=== PATIENT | male | born 1970 | race Caucasian/White ===

== ENCOUNTER 2024-11-28 09:08 | Emergency (ER) | payer OTHER ==
[~2024-11-28] VITALS: Ht 177.8 cm; Wt 95.0 kg
[2024-11-28 09:38] VITALS: BP 119/79; PULSE 64; RESP 18; TEMP 97.8; O2SAT 97
--- NOTE | 2024-11-28 09:38 | ED.PDOC ---
Musculoskeletal HPI Comments A 54 YEAR OLD MALE PRESENTS TO THE ED WITH COMPLAINT OF RIGHT ELBOW PAIN STATUS POST FALL. PATIENT STATES HE WAS RUNNING EARLIER TODAY AND ACCIDENTALLY FELL AND LANDED ON HIS RIGHT ELBOW. PATIENT REPORTS HE IS NOW EXPERIENCING RIGHT ELBOW AND IS CONCERNED HE MAY HAVE DISLOCATED IT HE HAS A HISTORY OF A RIGHT ELBOW DISLOCATION IN THE PAST. PATIENT DENIES HEAD INJURY, NECK INJURY, LOC, FEVER, CHILLS, SHORTNESS OF BREATH, CHEST PAIN, ABDOMINAL PAIN, NAUSEA, VOMITING, HEADACHE, OR OTHER COMPLAINTS. NO OTHER SYMPTOMS OR MODIFYING FACTORS AT THIS TIME. PATIENT IS ALERT, ORIENTED X 4, AND HAS STEADY GAIT. Chief Complaint: Upper Extremity Time Seen by MD: 09:17 Reviewed Notes: Nurses Notes, Medications, Allergies Allergies: Coded Allergies: NO KNOWN ALLERGIES (Unverified , 11/28/24) Home Meds Active Scripts Ibuprofen (Ibuprofen) 800 Mg Tab, 1 TAB PO TID, #60 TAB Prov:PATIENCEROWAN Zuniga 11/28/24 Information Source: Patient Mode of Arrival: Ambulatory Location: Right Extremity Location: Elbow Timing: Hours Prehospital treatment: None Severity: Moderate Able to Move Extremity: Yes Bear Weight: Fully Pain: Moderate Mechanism: Blunt Trauma Circumstances: Fall Onset of Symptoms: After Trauma Symptoms: Pain DVT Risk Factors: NONE Last Tetanus: UTD, Unknown Associated signs and symptoms: Elbow pain Past Medical History PAST MEDICAL HISTORY: Denies Surgical History: Denies all surgeries Family History Family History: Reviewed,noncontributory to illness Social History Smoker: Non-Smoker Alcohol: Denies ETOH Use Drugs: Denies Drug Use Lives In: Home Constitutional: denies: chills, diaphoresis, fatigue, fever, malaise, sweats, weakness, others EENTM: denies: blurred vision, double vision, ear bleeding, ear discharge, ear drainage, ear pain, ear ringing, eye pain, eye redness, hearing loss, mouth pain, mouth swelling, nasal discharge, nose bleeding, nose congestion, nose pain, photophobia, tearing, throat pain, throat swelling, voice changes, others Respiratory: denies: cough, hemoptysis, orthopnea, SOB at rest, shortness of breath, SOB with excertion, stridor, wheezing, others Cardiovascular: denies: chest pain, dizzy spells, diaphoresis, Dyspnea on exertion, edema, irregular heart beat, left arm pain, lightheadedness, palpitations, PND, syncope, others Gastrointestinal: denies: abdomen distended, abdominal pain, blood streaked bowels, constipated, diarrhea, dysphagia, difficulty swallowing, hematemesis, melena, nausea, poor appetite, poor fluid intake, rectal bleeding, rectal pain, vomiting, others Genitourinary: denies: burning, dysuria, flank pain, frequency, hematuria, incontinence, penile discharge, penile sore, pain, testicle pain, testicle swelling, urgency, others Neurological: denies: dizziness, fainting, headache, left sided numbness, left sided weakness, numbness, paresthesia, pre-existing deficit, right sided numbness, right sided weakness, seizure, speech problems, tingling, tremors, weakness, others Musculoskeletal: reports: joint pain, joint swelling, others (RIGHT ELBOW PAIN); denies: back pain, gout, muscle pain, muscle stiffness, neck pain Integumetry: denies: bruises, change in color, change in hair/nails, dryness, laceration, lesions, lumps, rash, wounds, others Allergic/Immunocompromised: denies: Difficulty Healing, Frequent Infections, Hives, Itching, others Hematologic/Lymphatic: denies: anemia, blood clots, easy bleeding, easy bruising, swollen glands, others Endocrine: denies: excessive hunger, excessive sweating, excessive thirst, excessive urination, flushing, intolerance to cold, intolerance to heat, unexplained weight gain, unexplained weight loss, others Psychiatric: denies: anxiety, bipolar disorder, depression, hopeless, panic disorder, schizophrenia, sleepless, suicidal, others All Other Systems: Reviewed and Negative Physical Exam General Appearance: No Apparent Distress, Normal HEENT: Normal ENT Inspection, PERRL/EOMI, Pharynx Normal, TMs Normal Neck: Full Range of Motion, Non-Tender, Normal, Normal Inspection Respiratory: Chest Non-Tender, Lungs Clear, No Accessory Muscle Use, No Respiratory Distress, Normal Breath Sounds Cardiovascular: No Edema, No JVD, No Murmur, No Gallop, Normal Peripheral Pulses, Regular Rate/Rhythm Breast Exam: Deferred Gastrointestinal: No Organomegaly, Non Tender, No Pulsatile Mass, Normal Bowel Sounds, Soft Genitalia: Deferred Pelvic: Deferred Rectal: Deferred Extremities: Decreased range of motion, No calf tenderness, Normal capillary refill, No pedal edema, Swelling (TENDERNESS AND MILD SWELLING ON RIGHT INNER ELBOW, NO BONY TENDERNESS, +DEFORMITY, DISLOCATION?? ), Tender (AND SWELLING RIGHT INNER ELBOW WITH DEFORMITY, NO OPEN WOUND SEEN. 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 Was a procedure done?: Yes Sedation Sedation?: No Reduction Indication: Dislocation (RIGHT ELBOW DISLOCATION) Intra-articular anesthetic leona: No Post-reduction x-ray show: Reduction (COUNTER PULLING OF THE PATIENT RIGHT FOREARM WAS DONE AN THEN THE PATIENT'S RIGHT ELBOW WAS MANIPULATED AT THE SAME TIME. A "CLICK" WAS FELT AND HEARD. PATIENT TOLERATED WELL. POST REDUCTION X- RAYS REVEALED CORRECT ANATOMICAL ALIGNMENT OF THE PATIENT'S RIGHT ELBOW.), Good Alignment (POST X-RAY OF RIGHT ELBOW ) Informed consent obtained: No Risks/benefits/alt described: Yes Notes COUNTER PULLING OF THE PATIENT RIGHT FOREARM WAS DONE AN THEN THE PATIENT'S RIGHT ELBOW WAS MANIPULATED AT THE SAME TIME. A "CLICK" WAS FELT AND HEARD. PATIENT TOLERATED WELL. POST REDUCTION X-RAYS REVEALED CORRECT ANATOMICAL ALIGNMENT OF THE PATIENT'S RIGHT ELBOW. Differential Diagnosis EXT Differential Diagnosis: Fracture, Sprain, Dislocation, Contusion, Strain X-Ray, Labs, Meds, VS Vital Signs Date Time Temp Pulse Resp B/P (MAP) Pulse Ox O2 Delivery O2 Flow Rate FiO2 11/28/24 09:38 64 18 97 Room Air 11/28/24 09:38 97.8 64 18 119/79 (92) 97 97.8 11/28/24 09:33 97.8 64 18 119/79 (92) 97 Current Medications Medications (Trade) Dose Ordered Sig/[place] Route Start Time Stop Time Status Last Admin Ketorolac Tromethamine (Toradol Injection) 60 mg ONCE ONCE IM 11/28/24 10:00 11/28/24 10:01 DC 11/28/24 10:08 EXAM: XY R ELBOW 3 VIEW XRAY CLINICAL INDICATION: FALL TECHNIQUE: XY R ELBOW 3 VIEW XRAY Comparison: None FINDINGS/IMPRESSION: Dislocation of the distal humerus with respect to the proximal ulna. No acute fracture. ATED BY: XENIA HUSSEIN MD DICTATED DATE/TIME: 11/28/24957 SIGNED BY: XENIA HUSSEIN MD SIGNED DATE/TIME: 11/28/24957 CC: CLINICAL INDICATION: POST REDUCTION TECHNIQUE: XY R ELBOW 2V XRAY Comparison: XY R ELBOW 3 VIEW XRAY on DOS: 11/28/24 FINDINGS/IMPRESSION: : Satisfactory interval reduction. Moderate joint effusion. Severe medial soft-tissue swelling. 1.6 cm ossific fragment at the medial aspect of the joint space is suspicious for an avulsion fracture fragment without obvious donor site. ATED BY: ORLANDO ALMANZA MD DICTATED DATE/TIME: 11/28/24 1012 SIGNED BY: ORLANDO ALMANZA MD SIGNED DATE/TIME: 11/28/24 1012 CC: X-Ray, Labs, Meds, VS Comment EXTERNAL MEDICAL RECORDS REVIEWED: [NONE] INDEPENDENT HISTORIANS: [NONE] SOCIAL DETERMINANTS OF HEALTH: [NONE] LABS ORDERED: NONE REVIEWED AND INTERPRETED RESULTS: NONE IMAGING ORDERED: XR ELBOW RT XR ELBOW RT (POST-REDUCTION):[INTERPRETED BY ME. SUCCESSFUL REDUCTION OF RIGHT ELBOW DISLOCATION. CORRECT ANATOMICAL ALIGNMENT VISUALIZED. NO ACUTE FRACTURE SEEN. PENDING RADIOLOGY REVIEW.] TREATMENTS ORDERED: TORADOL 60 MG IM,, POSTERIOR ELBOW SPLINT APPLIED TO PATIENT'S RIGHT ELBOW. PROCEDURES PERFORMED: NONE CRITICAL CARE TIME: NONE I HAVE DISCUSSED THE PATIENT WITH THE ATTENDING PHYSICIAN DR. ORTA AND HE AGREES WITH THE PATIENT'S PLAN OF CARE AND DISPOSITION. BASED ON HISTORY OF PRESENT ILLNESS, AND PHYSICAL EXAM, PATIENT WILL BE DISCHARGED HOME. DISCUSSED PLAN FOR DISCHARGE HOME WITH RX [IBUPROFEN 800 MG]. MEDICATION WARNINGS GIVEN. SHARED DECISION MAKING: PATIENT INSTRUCTED TO FOLLOW UP WITH PRIMARY CARE PROVIDER IN 1-2 DAYS FOR RE-EVALUATION OF SYMPTOMS. PATIENT VERBALIZES UNDERSTANDING TO RETURN TO ED FOR NEW OR WORSENING SYMPTOMS OR IF FOLLOW UP WITH PCP CANNOT BE OBTAINED. PATIENT FEELS COMFORTABLE GOING HOME AT THIS TIME. ALL QUESTIONS ADDRESSED AT TIME OF DISCHARGE. Images Reviewed?: Images reviewed and evaluated by me Time of 1ST Reevaluation: 10:30 Reevaluation 1ST: Improved Patient Education/Counseling: Diagnosis, Treatment, Need For Follow Up Family Education/Counseling: Diagnosis, Treatment, Need For Follow Up Medical Screening: No EMC Exist At This Time Departure 1 Departure Time of Disposition: 10:31 Impression: Primary Impression: Dislocation of elbow, right, closed Qualified Codes: S53.104A - Unspecified dislocation of right ulnohumeral joint, initial encounter Additional Impression: Status post fall Disposition: 01 HOME / SELF CARE / HOMELESS Condition: Stable Additional Instructions: FOLLOW-UP WITH PCP IN 1 TO 2 DAYS. TAKE MEDICATIONS PRESCRIBED. RETURN TO ED FOR ANY NEW OR WORSENING SYMPTOMS. e-Prescriptions Ibuprofen (Ibuprofen) 800 Mg Tab 1 TAB PO TID, #60 TAB Prov: ROWAN MORIN 11/28/24 Discharged With: Self Critical Care Note Critical Care Time?: No Stability Stability form required: No I personally scribed for ROWAN MORIN ([email or web address]) on 11/28/24 at 09:37. Electronically submitted by Christiano Cardoso ([email or web address]). I personally scribed for ROWAN MORIN ([email or web address]) on 11/28/24 at 09:59. Electronically submitted by Christiano Cardoso ([employer]). I personally scribed for ROWAN MORIN ([email or web address]) on 11/28/24 at 10:07. Electronically submitted by Christiano Cardoso ([employer]). I personally scribed for ROWAN MORIN ([email or web address]) on 11/28/24 at 10:16. Electronically submitted by Christiano Cardoso ([employer]). ROWAN MORIN Nov 28, 2024 09:37
--- NOTE | 2024-11-28 10:01 | DVH ---
EXAM: XY R ELBOW 3 VIEW XRAY CLINICAL INDICATION: FALL TECHNIQUE: XY R ELBOW 3 VIEW XRAY Comparison: None FINDINGS/IMPRESSION: Dislocation of the distal humerus with respect to the proximal ulna. No acute fracture.
[2024-11-28] MEDS: KETOROLAC TROMETH 60MG/2ML VIAL IM ONE (10:08)
--- NOTE | 2024-11-28 10:14 | DVH ---
CLINICAL INDICATION: POST REDUCTION TECHNIQUE: XY R ELBOW 2V XRAY Comparison: XY R ELBOW 3 VIEW XRAY on DOS: 11/28/24 FINDINGS/IMPRESSION: : Satisfactory interval reduction. Moderate joint effusion. Severe medial soft-tissue swelling. 1.6 cm ossific fragment at the medial aspect of the joint space is suspicious for an avulsion fractur e fragment without obvious donor site.
[2024-11-28] MEDS ORDERED: IBUP-1456 PO (10:15)
== END 2024-11-28 10:20 | disposition home or self-care (01) ==
LOC: ER 09:08
DX: S53.104A Unspecified dislocation of right ulnohumeral joint, initial encounter (principal); W18.39XA Other fall on same level, initial encounter; Y93.89 Activity, other specified; Y92.89 Other specified places as the place of occurrence of the external cause; Y99.8 Other external cause status
CPT/HCPCS: 24600; 73070; 73080; 96372; 99284; J1885